=== PATIENT | male | born 1985 | race Caucasian/White ===

== ENCOUNTER 2022-05-12 07:51 | Emergency (ER) | payer BC, SELFPAY ==
--- NOTE | 2022-05-12 07:14 | EKG12_ITS ---
Test Reason : SOB Blood Pressure : / mmHG Vent. Rate : 105 BPM Atrial Rate : 105 BPM P-R Int : 146 ms QRS Dur : 076 ms QT Int : 328 ms P-R-T Axes : 074 013 058 degrees QTc Int : 433 ms Sinus tachycardia Otherwise normal ECG Confirmed by DAVID MOMIN, EVIE ([id number]), book or script editor KATIA MAC ([id number]) on 05/18/2022 6:49:45 AM Referred By: CORINA Confirmed By:DARRELL HERNANDEZ MD
[2022-05-12 07:52] VITALS: BP 191/110; PULSE 112; RESP 19; TEMP 37.1; O2SAT 92
[2022-05-12 07:53] VITALS: BP 191/110; PULSE 112; RESP 19; TEMP 37.1; O2SAT 98
--- NOTE | 2022-05-12 08:25 | RAD_ITS ---
STUDY: X-RAY CHEST REASON FOR EXAM: Male, 36 years old. Dyspnea . Shortness of breath. Sore throat. TECHNIQUE: Single AP portable view of the chest. COMPARISON: None. FINDINGS: Scattered bilateral calcified granulomas. Linear scarring in the right upper lobe. There is a faint 2.8 cm x 3.7 cm nodular density in the lateral aspect of the right upper lobe. There is no demonstrated pleural abnormality. Normal size heart. There are calcified mediastinal and hilar lymph nodes. Normal visualized pulmonary arteries. Normal visualized aortic arch and descending thoracic aorta. Normal visualized thoracic spine. Normal visualized ribs, clavicles, and shoulders. There is no demonstrated abnormality of the visualized soft tissue structures of the upper abdomen. RAD/Chest 1 View IMPRESSION: Faint 2.8 cm x 3.7 cm nodular density in the peripheral lateral aspect of the right upper lobe. Correlation with CT scan is recommended for further evaluation. Electronically Signed: Teofilo Little MD at 8:40 EDT ,
[2022-05-12] MEDS: Racepinephrine HCl 0.5 ML VIAL.NEB. INHALATION (08:31)
[2022-05-12 08:33] VITALS: PULSE 93; RESP 10
--- NOTE | 2022-05-12 08:44 | EX.ED.VIS.UR ---
HPI HPI - URI History of Present Illness Chief Complaint: Shortness of Breath Detail of Chief Complaint: Sore throat. 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 He is said to have his trachea dilated 3 times most recently 1 year ago at [facility]. Said he recently took a trip and he fell like he was getting URI symptoms with a sore throat on Wednesday morning. Yesterday felt mildly short of breath. Is a nonproductive cough. Denies any fever or chills. No chest pain. No hemoptysis. Prior similar symptoms: Yes Recent Illness/Hospitalization: No ROS ROS ED ROS Narrative Sore throat. Shortness of breath. Cough. Review of Systems ROS Unobtainable: Denies due to encephalopathy Constitutional Constitutional ED: Denies chills or fever(s) Eyes Eyes: Denies blurry vision ENT ENT ED: Denies ear pain Cardiovascular Cardiovascular: Denies chest pain Respiratory/Chest Respiratory/Chest: Reports cough and dyspnea Gastrointestinal Gastrointestinal: Denies abdominal pain Genitourinary Genitourinary ED: Denies dysuria or hematuria Musculoskeletal Musculoskeletal: Denies arthralgias Integumentary Denies abscess Neurologic Neurologic: Denies headache(s) Psychiatric Psychiatric: Denies anxiety Endocrine Endocrinology: Denies cold intolerance Hematologic/Lymphatic Hematologic/Lymphatic: Denies easy bleeding or easy bruising Allergic/Immunologic Allergic/Immunologic ED: Denies mouth swelling or tongue swelling [facility] Medical History (Updated 05/12/22 @ 11:[address] Robert Bermudez MD) Negar's granulomatosis Home Medications prednisone 50 mg tablet 50 mg PO DAILY 3 days #3 tabs 05/12/22 [Rx Last Taken Unknown] Allergy/AdvReac Type Severity Reaction Status Date / Time No Known Allergies Allergy Verified 05/12/22 07:52 Surgical History History of lung biopsy Social History Smoking Status: Never smoker EXAM Physical Exam Narrative Exam Narrative: 35-year-old male no acute distress. Vital signs are stable blood pressure elevated 191/110. Tachycardic at 112. Pulse ox 90% on room air no signs hypoxia. H EENT exam normal. Posterior pharynx normal. He does sound like he has mild stridor. But he is not in distress. Moist weeks membranes. There is no inflammation or redness in his posterior pharynx. Able to handle his own secretions. Neck nontender. Trachea midline. No lymphadenopathy. Lungs clear to auscultation bilaterally. Heart regular rhythm rate about 110 no murmur. Abdomen soft nontender. Moving all 4 extremities. Calves are nontender that edema or cords. Neurologically is awake and alert. Const Vital Signs: 05/12/22 07:52 05/12/22 07:53 05/12/22 08:33 Temperature 98.8 F 98.8 F Temperature Source Temporal Temporal Pulse Rate 112 H 112 H 93 Respiratory Rate 19 H 19 H 10 L Blood Pressure 191/110 H 191/110 H Blood Pressure Mean 137 137 Pulse Ox 92 98 Oxygen Delivery Method Room Air 05/12/22 08:52 05/12/22 10:09 05/12/22 11:00 Temperature Temperature Source Pulse Rate 89 94 91 Respiratory Rate 16 13 13 Blood Pressure 164/94 H 156/85 H 137/96 H Blood Pressure Mean 117 108 109 Pulse Ox 96 96 96 Oxygen Delivery Method Room Air Room Air Room Air Positive well nourished and well developed; Negative for obese, cachectic or contractures General Appearance ED: well developed and NAD; Negative for cachectic, contractures, cyanotic, diaphoretic or pallor Nutritional Appearance: Negative for cachectic or obese HEENT Reports moist mucous membranes; Denies dry mucous membranes normocephalic and atraumatic Mouth ED: No dry mucous membranes Mouth: No dry mucous membranes Throat: posterior oropharynx normal Eyes PERRL and EOMs intact bilaterally General Eye ED: Negative for pale conjunctiva or scleral icterus Neck no lymphadenopathy, supple, no meningeal signs and no JVD General: Negative for anterior neck swelling or lymphadenopathy Resp normal respiratory effort and clear to auscultation bilaterally Effort and Inspection: Negative for retractions Auscultation: Negative for rales, rhonchi or wheezes Cardio S1 normal heart sound, S2 normal heart sound and no murmurs Rate: regular rate Rhythm: regular rhythm GI non-tender, non-distended and no masses Inspection: Negative for abdominal distention Auscultation: normoactive bowel sounds Palpation: soft; Negative for tender or guarding Back/Spine no CVA tenderness and normal ROM General Back: Negative for CVA tenderness Cervical Spine: Negative for cervical spine tenderness Thoracic Spine / Upper Back: Negative for thoracic spinal tenderness Lumbar Spine / Lower Back: Negative for lumbar spinal tenderness Sacrum: Negative for tenderness Extremity normal to inspection and full ROM General Extremety ED: Negative for cyanosis or tenderness General Extremity: Negative for cyanosis Neuro oriented x3 and CN's II-XII intact bilaterally Sensorium / Orientation: alert, oriented to person, oriented to place and oriented to time; Negative for orientation impaired, lethargic or stuporous Motor Exam: strength 5/5 throughout Psych mental status grossly normal Appearance: Negative for other Attitude: No agitated Mood & Affect: Negative for depressed, anxious or tearful Skin General Skin Exam: Negative for jaundice or pallor Lesions: no lesions Rashes: no rashes Trauma: Negative for abrasion MDM MDM MDM Narrative Medical decision making narrative: 36-year-old male URI symptoms with potentially mild stridor he has had upper airway surgery in the past for tracheal dilatation. He will be treated with a racemic aerosol. P.o. prednisone and will obtain a chest x-ray. EKG was obtained by nursing. Repeat exam patient is doing well at 11:50 AM. After racemic aerosol and the steroid he is feeling better. His EKG was unremarkable his chest x-ray chronic granulomatous changes. He will be discharged home on prednisone 40 mg a day for the next 3 days. Follow-up with his doctor if not improving or return if worse. I do not think he needs any further labs or imaging at this time. Patient is comfortable being discharged home. Radiography Chest X-Ray - ED: 1 View, Read by ED Physician, Read by Radiologist, Heart, Lungs, Mediastinum, Bony Structures, No Acute Disease and Chronic Changes Diagnostic Testing: Clinical Impression(s) from Imaging Studies Chest X-Ray 05/12/22 08:25 IMPRESSION: Faint 2.8 cm x 3.7 cm nodular density in the peripheral lateral aspect of the right upper lobe. Correlation with CT scan is recommended for further evaluation. Electronically Signed: Teofilo Little MD at 8:40 EDT , Chest x-ray, portable, single view, interpreted both by myself and the radiologist shows granulomatous disease. No acute process. No infiltrate. Rhythm Strip Rhythm Strip: Sinus Tach Rate: 105 Ectopy: None EKG Initial EKG: Attestation: I personally reviewed and interpreted this EKG as follows: Interpretation: No Acute Injury Pattern and Sinus Tachycardia Comments: Sinus tachycardia rate of 105 no acute signs of HI, ischemia or dysrhythmia. Discharge Plan Triage Chief Complaint: Shortness of Breath Other Complaint: Sore Throat ED Provider: Robert Bermudez Dx/Rx/DC Orders Clinical Impression: Viral syndrome, Stridor, History of tracheal stenosis Instructions: ED URI, Viral, No Abx (Adult) Prescriptions: New prednisone 50 mg tablet 50 mg PO DAILY 3 Days Qty: 3 0RF Primary Care Provider: Calos Youngblood Referrals: Calos Youngblood MD [Primary Care Provider] - 3-5 Days if not improving Care Physician,No Primary [Non-Staff] - Activity Restrictions/Additional Instructions: This appears to be from a virus. I think you have inflammation in your trachea. That improved with the aerosol we gave you and the steroid. You do not need an antibiotic. We will put you on prednisone daily for the next 3 days. Start that tomorrow. This should progressively improve. If you are not improving follow-up with your ENT at the [facility]. If you are getting worse return to the emergency department and we will get a CAT scan of your soft tissue of your neck. Disposition Disposition: Home, Self Care
[2022-05-12] MEDS: predniSONE 20 MG Tablet 60 MG PO (08:50)
[2022-05-12 08:52] VITALS: BP 164/94; PULSE 89; RESP 16; O2SAT 96
[2022-05-12 10:09] VITALS: BP 156/85; PULSE 94; RESP 13; O2SAT 96
[2022-05-12 11:00] VITALS: BP 137/96; PULSE 91; RESP 13; O2SAT 96
== END 2022-05-12 12:07 | disposition home or self-care (01) ==
PROVIDERS: Emergency Provider Emergency Medicine; PCP Family Medicine; Visit Provider Emergency Medicine
DX: B34.9 Viral infection, unspecified (principal); R06.1 Stridor; Z87.09 Personal history of other diseases of the respiratory system
CPT/HCPCS: 71045; 93005; 94640; 99282; A4216

== ENCOUNTER 2022-10-27 08:39 | Emergency (ER) | payer BC, SELFPAY ==
[2022-10-27 08:40] VITALS: BP 221/123; PULSE 97; RESP 18; TEMP 36.4; O2SAT 96
--- NOTE | 2022-10-27 08:56 | EX.ED.DYSGE1 ---
HPI History of Present Illness Chief Complaint: Shortness of Breath Detail of Chief Complaint: Shortness of breath Informant: patient Narrative Narrative: Patient presents with shortness of breath that started 4 days ago. Patient states that he had bad reflux 4 days ago and then started having trouble breathing. Patient has history of Negar's granulomatosis and has had to have dilatation of his airway by ENT x3. His last dilatation was about 1 year ago. Patient has an appointment with his ENT in 2 weeks. Patient having hard time sleeping at night. He is complaining of exertional dyspnea. Denies any chest pain. He has had a slight cough but no fever. Patient also has history of hypertension but ran out of his medications and has not been taking his medications. [facility] Medical History (Updated 10/27/22 @ 10:[address] Josue Friedman DO) Negar's granulomatosis Home Medications prednisone 50 mg tablet 50 mg PO DAILY 3 days #3 tabs 05/12/22 [Rx Last Taken Unknown] losartan 25 mg tablet 25 mg PO DAILY #30 tabs 10/27/22 [Rx Last Taken Unknown] Allergy/AdvReac Type Severity Reaction Status Date / Time No Known Allergies Allergy Verified 10/27/22 08:39 Surgical History History of lung biopsy Social History Smoking Status: Never smoker ROS ROS ED Review of Systems ROS Unobtainable: other Constitutional Constitutional ED: Reports lethargy; Denies chills, fever(s), sweats or weight loss Eyes Eyes: Denies blurry vision, change in vision or diplopia ENT ENT ED: Denies rhinorrhea or sore throat Cardiovascular Cardiovascular: Denies chest pain, orthopnea or racing heartbeat Respiratory/Chest Respiratory/Chest: Reports cough, dyspnea and dyspnea on exertion; Denies orthopnea or sputum Gastrointestinal Gastrointestinal: Denies abdominal pain, diarrhea, nausea or vomiting Genitourinary Genitourinary ED: Denies dysuria, hematuria or urinary frequency Musculoskeletal Musculoskeletal: Denies arthralgias, back pain, myalgias or neck pain Integumentary Denies abscess, Abrasions or rash Neurologic Neurologic: Denies headache(s) or weakness Psychiatric Psychiatric: Denies anxiety, depression or suicidal thoughts Endocrine Endocrinology: Denies polydipsia, polyphagia or polyuria Hematologic/Lymphatic Hematologic/Lymphatic: Denies easy bleeding, easy bruising or lymphadenopathy Allergic/Immunologic Allergic/Immunologic ED: Denies mouth swelling, tongue swelling or urticaria EXAM Physical Exam Const Vital Signs: 10/27/22 08:40 10/27/22 09:21 10/27/22 09:21 Temperature 97.6 F L Temperature Source Temporal Pulse Rate 97 Respiratory Rate 18 Respiratory Effort Respiratory Pattern Blood Pressure 221/123 H 142/99 H Blood Pressure Mean 155 113 Pulse Ox 96 Oxygen Delivery Method Room Air Room Air Room Air 10/27/22 09:21 10/27/22 09:08 10/27/22 09:47 Temperature Temperature Source Pulse Rate 92 90 Respiratory Rate 16 Respiratory Effort Short of Breath Respiratory Pattern Tachypnea Blood Pressure 137/99 H Blood Pressure Mean 111 Pulse Ox 96 Oxygen Delivery Method 10/27/22 11:27 Temperature Temperature Source Pulse Rate 88 Respiratory Rate Respiratory Effort Respiratory Pattern Blood Pressure 133/87 H Blood Pressure Mean 102 Pulse Ox Oxygen Delivery Method Room Air Positive well nourished and well developed General Appearance ED: well developed and NAD HEENT Reports TM's clear and moist mucous membranes normocephalic and atraumatic; Negative for trauma or tenderness Tympanic Membrane ED: Yes TM's clear Eyes PERRL and EOMs intact bilaterally General Eye ED: Negative for pale conjunctiva or scleral icterus Neck no lymphadenopathy, supple and no JVD General: Negative for tenderness Chest Wall inspection of chest normal and palpation of chest normal Chest: Negative for tenderness Resp normal respiratory effort and clear to auscultation bilaterally Resp Narrative: Patient with some stridor at rest. No significant wheezing or rails. No accessory muscle use or retractions. No significant tachypnea. Effort and Inspection: Negative for respiratory distress or pain with movement Auscultation: Negative for rhonchi, wheezes or diminished lung sounds Cardio regular rate, regular rhythm, S1 normal heart sound, S2 normal heart sound and no murmurs Peripheral Pulses: pulses 2+ throughout GI normal to inspection, nondistended, normoactive bowel sounds, soft to palpation, non-tender, non-distended and no masses Back/Spine no CVA tenderness and no thoracic nor lumbar tenderness Extremity normal to inspection General Extremety ED: Negative for edema General Extremity: Negative for edema Neuro oriented x3, CN's II-XII intact bilaterally, no sensory deficits noted and gait normal Sensorium / Orientation: awake, alert, oriented to person, oriented to place and oriented to time Motor Exam: strength 5/5 throughout and strength abnormal Psych mental status grossly normal Skin no rashes or lesions noted and no wounds MDM MDM MDM Narrative Medical decision making narrative: Presents with increased difficulty breathing over the last 4 days. History of of Negar's granulomatosis and prior history of dilatation of his upper airway. Patient was given a racemic epi aerosol and he did not have significant improvement in his symptoms with that. Initially ordered hydralazine for elevated blood pressure however on repeat blood pressure his blood pressures normalized we held off on hydralazine. CBC with differential obtained for normal white count of 6.9 with hemoglobin of 14.7 and platelet count 250. Chemistries were unremarkable. We did obtain a CT scan of the soft tissue neck which did not show any evidence of airway compromise. He did have a granuloma in the right upper lobe. Patient also had a chest x-ray that showed granuloma right upper lobe as well as multiple other granulomas that appear to be stable and radiology recommended potentially a PET scan at some point. I attempted to contact Dr. Lizama who is patient's ENT however he is on vacation this week apparently but does have coverage. I discussed with nurse patient's case and she will discuss with ENT coverage on-call and they will call patient to schedule a close follow-up exam and evaluation for definitive care. Feel clinically patient can be safely discharged to home. I will write him a prescription for losartan that he can restart. He is advised to return if increased difficulty breathing or condition should worsen anyway. 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 Lab Data Attestation: I reviewed the patient's lab results. Labs: Laboratory Results - last 24 hr 10/27/22 09:09 WBC 6.9 RBC 4.94 Hgb 14.7 Hct 44.2 MCV 89.5 MCH 29.8 MCHC 33.3 RDW Std Deviation 37.4 RDW Coeff of Sherrill 11.7 Plt Count 250 MPV 11.5 Immature Gran % (Auto) 0.300 Neut % (Auto) 62.7 Lymph % (Auto) 25.5 Willacy % (Auto) 9.3 Eos % (Auto) 1.6 Baso % (Auto) 0.6 Absolute Neuts (auto) 4.3 Absolute Lymphs (auto) 1.75 Nucleated RBC % 0 Sodium 138 Potassium 4.0 Chloride 108 H Carbon Dioxide 26.0 Anion Gap 4 L BUN 15 Creatinine 0.88 Estim Creat Clear Calc 113.35 Est GFR (MDRD) Af Amer 126 Est GFR (MDRD) Non-Af 104 BUN/Creatinine Ratio 17.0 Glucose 99 Calcium 8.7 Radiography Diagnostic Testing: Clinical Impression(s) from Imaging Studies Soft Tissue Neck CT 10/27/22 09:30 IMPRESSION: Partial opacification of the left sphenoid sinus and minimal thickening along the medial wall of the right maxillary sinus. 1.7 cm x 1.6 cm densely calcified nodule in the right upper lobe. This is visualized on the chest radiograph. There is some spiculation of the nodule. Correlation with a PET scan is recommended. Electronically Signed: Teofilo Little MD at 9:54 EDT , Chest X-Ray 10/27/22 09:33 IMPRESSION: Stable 3.3 cm x 3 cm rounded nodule in the peripheral lateral aspect of the right upper lobe. Stable calcified granulomas as well as calcified mediastinal and hilar lymph nodes. Electronically Signed: Teofilo Little MD at 9:47 EDT , Chest x-ray obtained interpreted by myself as granuloma right upper lobe and multiple other smaller granulomas both lung bases. Radiology in agreement. Radiology did recommend PET scan to evaluate further however the granuloma of the right upper lobe did appear stable when compared with prior chest x-ray. Discharge Plan Triage Chief Complaint: Shortness of Breath ED Provider: Josue Friedman Dx/Rx/DC Orders Clinical Impression: Dyspnea, Hypertension Prescriptions: New losartan 25 mg tablet 25 mg PO DAILY Qty: 30 0RF No Action prednisone 50 mg tablet 50 mg PO DAILY 3 Days Qty: 3 0RF Primary Care Provider: Ana Rudd [employer] Referrals: Calos Youngblood MD [Non-Staff] - Activity Restrictions/Additional Instructions: Dr. Lawrence will contact you for close follow-up with ENT. Disposition Disposition: Home, Self Care Discharge Date/Time: 10/27/22 11:31
[2022-10-27] MEDS: Racepinephrine HCl 0.5 ML VIAL.NEB. INHALATION (09:03)
[2022-10-27 09:08] VITALS: PULSE 92; RESP 16
[2022-10-27 09:16] LABS: Absolute Lymphocyte Count 1.75 X10^3/uL (0.83-4.51); Absolute Neutrophil Count 4.3 X10^3/uL (2.0-7.7); Basophil# 0.04 X10^3/uL; Basophil% 0.6 % (0-1); Eosinophil# 0.11 X10^3/uL; Eosinophils% 1.6 % (0-5); Hematocrit 44.2 % (40-54); Hemoglobin 14.7 g/dL (13.0-16.5); Lymphocyte # 1.75 X10^3/ul (0.83-4.51); Lymphocyte % 25.5 % (19-41); Mean Corp Hgb Conc 33.3 g/dL (32-36); Mean Corpuscular Hgb 29.8 pg (27.0-32.0); Mean Corpuscular Volume 89.5 fL (80-94); Mean Platelet Vol. 11.5 fl (6.2-12.0); Monocyte# 0.64 X10^3/uL; Monocyte% 9.3 % (0-10); NRBC Flagged by Analyzer 0 % (0-5); Neutrophil # 4.29 X10^3/uL (2.7-7.7); Neutrophil % 62.7 % (47-70); Platelet Count 250 K/mm3 (150-450); RBC Distribution Width CV 11.7 % (11.6-14.6); RBC Distribution Width SD 37.4 fl (35.1-43.9); Red Blood Count 4.94 M/mm3 (4.6-6.2); White Blood Count 6.9 K/mm3 (4.4-11.0)
[2022-10-27 09:19] VITALS: BMI 34.0
[2022-10-27 09:21] VITALS: BP 142/99
--- NOTE | 2022-10-27 09:30 | CT_ITS ---
STUDY: CT SOFT TISSUE NECK WITH CONTRAST REASON FOR EXAM: Male, 37 years old. Dyspnea, stridor RADIATION DOSAGE (If Supplied By Facility): CTDIvol = ( 17.20 ) mGy, DLP = ( 528.65 ) mGycm TECHNIQUE: The patient was scanned in a multi-detector CT scanner. High resolution transaxial imaging was performed following intravenous administration of IV 100mL [id number]-300. Sagittal and coronal images were reconstructed. Individualized dose optimization techniques were used for this CT. COMPARISON: None. FINDINGS: There is a 1.7 cm x 1.6 cm densely calcified nodule in the right upper lobe. This corresponds to the radiographic findings. There is evidence of spiculation. Calcified mediastinal lymph nodes. Normal bilateral parotid glands. 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 Normal bilateral parapharyngeal spaces. Normal bilateral carotid spaces. Normal bilateral sublingual and submandibular glands and spaces. Normal visualized nasopharynx. Normal retropharyngeal space. Normal perivertebral space. Normal visualized bilateral faucial tonsils. The visualized tongue, tongue base and oropharynx are normal. The visualized cervical lymph nodes (levels I-) are within normal size limits, and maintain normal morphology. There is no demonstrated solid or cystic mass lesion. There is no abnormal contrast enhancement. Normal epiglottis, bilateral vallecula and hypopharynx. The pre-epiglottic and paraglottic adipose spaces are normal. Normal visualized bilateral piriform sinuses, aryepiglottic folds, vocal cords, and arytenoid-cricoid articulations. Normal subglottic trachea. Normal bilateral lobes of the thyroid gland. Normal visualized pulmonary apices. Partial opacification of the left sphenoid sinus. Minimal thickening along the medial wall of the right maxillary sinus. Normal visualized cervical spine. CT/Soft Tissue Neck WITH Contrast IMPRESSION: Partial opacification of the left sphenoid sinus and minimal thickening along the medial wall of the right maxillary sinus. 1.7 cm x 1.6 cm densely calcified nodule in the right upper lobe. This is visualized on the chest radiograph. There is some spiculation of the nodule. Correlation with a PET scan is recommended. Electronically Signed: Teofilo Little MD at 9:54 EDT ,
--- NOTE | 2022-10-27 09:33 | RAD_ITS ---
STUDY: X-RAY CHEST REASON FOR EXAM: Male, 37 years old. Dyspnea TECHNIQUE: Single AP portable view of the chest. COMPARISON: Comparison is made with prior study dated May 12, 2022. FINDINGS: EKG electrodes are seen. Persistent 3.3 cm x 3 cm rounded nodule in the peripheral lateral aspect of the right upper lobe. Scattered calcified granulomas. There is no demonstrated pleural abnormality. Normal size heart. There are calcified mediastinal and hilar lymph nodes. Normal visualized pulmonary arteries. Normal visualized aortic arch and descending thoracic aorta. Normal visualized thoracic spine. Normal visualized ribs, clavicles, and shoulders. There is no demonstrated abnormality of the visualized soft tissue structures of the upper abdomen. RAD/Chest 1 View (Portable) IMPRESSION: Stable 3.3 cm x 3 cm rounded nodule in the peripheral lateral aspect of the right upper lobe. Stable calcified granulomas as well as calcified mediastinal and hilar lymph nodes. Electronically Signed: Teofilo Little MD at 9:47 EDT ,
[2022-10-27 09:34] LABS: Anion Gap 4 (5-15); BUN 15 mg/dL (7-18); Calcium,Total 8.7 mg/dL (8.5-10.1); Chloride 108 mmol/L (98-107); Creatinine, Serum 0.88 mg/dL (0.70-1.30); EST Glomerular Filtration Rate 104 mL/min (>60); Est Glom Filt Rate - Afr Amer 126 mL/min (>60); Estimated Creatinine Clearance 113.35 ml/min; Glucose 99 mg/dL (74-106); Sodium Level 138 mmol/L (136-145)
[2022-10-27 09:47] VITALS: BP 137/99; PULSE 90; O2SAT 96
[2022-10-27 11:27] VITALS: BP 133/87; PULSE 88
== END 2022-10-27 11:31 | disposition home or self-care (01) ==
PROVIDERS: Emergency Provider Emergency Medicine; PCP Registered Nurse; Visit Provider Emergency Medicine
DX: R06.02 Shortness of breath (principal); M31.30 Wegener's granulomatosis without renal involvement; I10 Essential (primary) hypertension; Z79.899 Other long term (current) drug therapy; R91.1 Solitary pulmonary nodule
CPT/HCPCS: 70491; 71045; 80048; 85025; 87428; 94640; 99283; Q9967; A4216